=== PATIENT | female | born 2005 | race Two or more races ===

== ENCOUNTER 2023-08-27 00:41 | Emergency (ER) | payer MEDICAID ==
[~2023-08-27] VITALS: Ht 175.3 cm; Wt 58.3 kg
[2023-08-27 00:51] VITALS: BP 126/78; PULSE 80; RESP 15; O2SAT 100
== END 2023-08-27 03:35 | disposition left against medical advice (07) ==
LOC: ER 00:41
DX: R51.9 Headache, unspecified (principal); Z53.21 Procedure and treatment not carried out due to patient leaving prior to being seen by health care provider